=== PATIENT | female | born 1950 | race Caucasian/White ===

== ENCOUNTER 2022-05-15 10:48 | Day surgery (SDC) | payer MEDICARE, BC ==
[2022-05-15] VITALS (15 sets, daily range): BP systolic 138–161; BP diastolic 70–96
[~2022-05-15] VITALS: Ht 154.9 cm; Wt 72.8 kg
[2022-05-15] MEDS ORDERED: normal saline 1000ml 1,000 ML IV PRN (11:15)
[2022-05-15] MEDS ORDERED: ASPI81TA52 PO (11:56)
[2022-05-15] MEDS ORDERED: LINA5TAB4 PO (11:56)
[2022-05-15] MEDS ORDERED: ACET-1008 PO (11:56)
[2022-05-15] MEDS ORDERED: NAPR220C62 PO (11:56)
[2022-05-15] MEDS ORDERED: LEVO112T5 PO (11:56)
[2022-05-15] MEDS ORDERED: CALC1TAB PO (11:56)
[2022-05-15] MEDS ORDERED: IMMU10VI SUBCUT (11:56)
[2022-05-15] MEDS ORDERED: ALBU8HFA PO (11:56)
[2022-05-15] MEDS ORDERED: DULO60CA65 PO (11:56)
[2022-05-15] MEDS ORDERED: ALB0.5UD IH (11:56)
[2022-05-15] MEDS ORDERED: ESOM20CA38 PO (11:56)
[2022-05-15] MEDS ORDERED: PRED10TA PO (11:56)
[2022-05-15] MEDS ORDERED: FLUT1DIS INH (11:56)
[2022-05-15 12:11] LABS: BASOPHILS # (AUTO) 0.1 X10'3 (0-0.2); EOSINOPHILS # (AUTO) 0.1 X10'3 (0-0.9); EOSINOPHILS % (AUTO) 1.6 % (0-6); HEMATOCRIT 40.4 % (35.0-45.0); HEMOGLOBIN 13.5 g/dl (12.0-16.0); LYMPHOCYTES # (AUTO) 1.5 X10'3 (1.1-4.8); LYMPHOCYTES % (AUTO) 22.5 % (21-51); MEAN CORPUSCULAR HEMOGLOBIN 30.5 PG (27.0-31.0); MEAN CORPUSCULAR HGB CONC 33.5 g/dL (33.0-36.5); MEAN CORPUSCULAR VOLUME 91.1 FL (78-98); MONOCYTES # (AUTO) 0.4 X10'3 (0-0.9); MONOCYTES % (AUTO) 5.6 % (2-12); NEUTROPHILS # (AUTO) 4.6 X10'3 (1.8-7.7); NEUTROPHILS % (AUTO) 69.3 % (42-75); PLATELET COUNT 244 X10'3 (140-440); RED BLOOD COUNT 4.43 X10'6 (4.20-5.60); RED CELL DISTRIBUTION WIDTH 15.1 % (11.5-14.5); WHITE BLOOD COUNT 6.7 X10'3 (4.5-11.0)
[2022-05-15] MEDS ORDERED: fentaNYL/PF 50MCG/1 ML 2ML syringe ONE (13:46)
[2022-05-15] MEDS ORDERED: midazolam 1 mg/ML 2ml injection ONE (13:46)
[2022-05-15] MEDS ORDERED: gelatin sponge, absorbable (Gelfoam 12-7MM) sponge TP ONE (13:54)
[2022-05-15] MEDS ORDERED: HYDROcodone/acetaminophen 5mg/325mg tablet PO PRN ×2 (14:20)
== END 2022-05-15 17:30 | disposition home or self-care (01) ==
LOC: SSTAY O 10:48
PROVIDERS: ATTEND Radiology Vascular & Interventional Radiology
DX: K76.89 Other specified diseases of liver (principal); C78.7 Secondary malignant neoplasm of liver and intrahepatic bile duct; C80.1 Malignant (primary) neoplasm, unspecified; Z88.1 Allergy status to other antibiotic agents; Z91.012 Allergy to eggs; Z79.82 Long term (current) use of aspirin; Z79.899 Other long term (current) drug therapy
CPT/HCPCS: 36415; 47000; 76942; 85025; 85610; 99152; 99153; J2250; J3010; J7030

== ENCOUNTER 2022-07-09 11:00 | Day surgery (SDC) | payer MEDICARE, BC ==
[~2022-07-09] VITALS: Ht 153.7 cm; Wt 67.4 kg
[~2022-07-09 11:00] MED LIST: ACET-1008 PO; ALB0.5UD IH; ALBU8HFA PO; ASPI81TA52 PO; CALC1TAB PO; DULO60CA65 PO; ESOM20CA38 PO; FLUT1DIS INH; IMMU10VI SUBCUT; LEVO112T5 PO; LINA5TAB4 PO; NAPR220C62 PO; PRED10TA PO
[2022-07-09] MEDS ORDERED: normal saline 1000ml 1,000 ML IV SCH (11:25)
[2022-07-09 12:15] VITALS: BP 144/97
[2022-07-09] MEDS ORDERED: heparin sodium, porcine/PF 100unit/ml 5ML syringe ONE (12:31)
[2022-07-09] MEDS ORDERED: LIDOcaine 1% 30ml preserv. free vial ONE (12:32)
[2022-07-09] MEDS ORDERED: FENTANYL CITRATE/PF 50 MCG/1 ML VIAL ONE (12:32)
[2022-07-09] MEDS ORDERED: midazolam 1 mg/ML 2ml injection ONE (12:32)
[2022-07-09] MEDS ORDERED: PRE1T PO (12:33)
[2022-07-09] MEDS ORDERED: CHOL200074 PO (12:33)
[2022-07-09] MEDS ORDERED: FOLI1TAB27 PO (12:33)
[2022-07-09] MEDS ORDERED: TRAM50TA2 PO (12:33)
[2022-07-09 13:45] VITALS: BP 166/93
[2022-07-09 13:59] VITALS: BP 154/92
[2022-07-09 14:14] VITALS: BP 149/84
[2022-07-09 14:30] VITALS: BP 151/42
[2022-07-09 14:44] VITALS: BP 153/91
== END 2022-07-09 15:03 | disposition home or self-care (01) ==
LOC: SSTAY O 11:00
PROVIDERS: ATTEND Radiology Vascular & Interventional Radiology
DX: C34.91 Malignant neoplasm of unspecified part of right bronchus or lung (principal); F17.210 Nicotine dependence, cigarettes, uncomplicated; Z79.899 Other long term (current) drug therapy; G43.909 Migraine, unspecified, not intractable, without status migrainosus; Z88.1 Allergy status to other antibiotic agents; Z91.012 Allergy to eggs
CPT/HCPCS: 36561; 76937; 77001; 99152; 99153; C1769; C1788; C1894; J1642; J2250; J3010; J3490; J7030; A4620